=== PATIENT | female | born 1970 | race Caucasian/White ===

== ENCOUNTER 2020-05-06 18:35 | Emergency (ER) | payer OTHER ==
[~2020-05-06] VITALS: Ht 160 cm; Wt 73.5 kg
[2020-05-06] MEDS ORDERED: AMITRIPTYLINE H25 MG (19:18)
== END 2020-05-06 23:55 | disposition home or self-care (01) ==
LOC: ER 18:35
DX: N93.8 Other specified abnormal uterine and vaginal bleeding (principal)

== ENCOUNTER 2020-06-26 10:00 | Inpatient (IN) | payer OTHER ==
[~2020-06-26] VITALS: Ht 160 cm; Wt 73.5 kg
[~2020-06-26 10:00] MED LIST: AMITRIPTYLINE H25 MG
[2020-07-03] MEDS ORDERED: MEGESTROL ACETA40 MG (15:25)
[2020-07-03] MEDS ORDERED: SPRINTEC 28 DA1 EACH (15:26)
[2020-07-04] MEDS ORDERED: CODE1TAB37 PO (08:58)
[2020-07-04] MEDS ORDERED: PEPCID AC20 MG PO (08:59)
[2020-07-04] MEDS ORDERED: NAPROXEN500 MG PO (08:59)
== END 2020-07-04 10:45 | disposition home or self-care (01) | DRG 743 ==
LOC: EDSTATUS 10:00 → O/R 07-03 06:00 → OB/GYN 07-03 06:00 → EDSTATUS 07-03 10:00 → CIR.AMB 07-03 10:00 → OB/GYN 07-03 11:11
PROVIDERS: ADMIT Obstetrics & Gynecology; ATTEND Obstetrics & Gynecology
PROC: 0UQF8ZZ Repair Cul-de-sac, Via Natural or Artificial Opening Endoscopic (ICD-10-PCS; 2020-07-03)
PROC: 0USG8ZZ Reposition Vagina, Via Natural or Artificial Opening Endoscopic (ICD-10-PCS; 2020-07-03)
PROC: 0TJB8ZZ Inspection of Bladder, Via Natural or Artificial Opening Endoscopic (ICD-10-PCS; 2020-07-03)
PROC: 0UT98ZZ Resection of Uterus, Via Natural or Artificial Opening Endoscopic (ICD-10-PCS; principal; 2020-07-03 13:30)
DX: N72 Inflammatory disease of cervix uteri (principal); D25.1 Intramural leiomyoma of uterus; N81.5 Vaginal enterocele